=== PATIENT | female | born 1965 | race Caucasian/White ===

== ENCOUNTER 2022-03-09 14:13 | Outpatient (CLI) | payer BC, SELFPAY ==
--- NOTE | 2022-03-09 15:30 | CRLHL7_ITS ---
For Patients: As a result of the 21st Century Cures Act, medical imaging exams and procedure reports are released immediately into your electronic medical record. You may view this report before your referring provider. If you have questions, please contact your health care provider. INDICATION: Patient with history of breast cancer status post bilateral mastectomy and reconstruction 2017. Patient with prior radiation therapy and chemotherapy. Patient recently with right hip pain and a small lucency in the greater trochanteric region of the right hip. Exam is being performed for staging. TECHNIQUE: Patient received 13.0 millicuries of 18 FDG (18 fluorodeoxyglucose) intravenously. PET-CT imaging has been performed from the mid skull to mid thigh level [address] images have been obtained for attenuation correction and localization only. Blood glucose level: 86 mg/dL. FINDINGS: Within the chest no abnormal uptake is identified in the mediastinum or hilar regions. The lungs demonstrate no abnormal uptake. No suspicious infiltrates or masses are seen. Axillary regions demonstrate small bilateral lymph nodes. These have low to intermediate activity with a SUV max of 2.1 on the left. Surgical clips are identified bilaterally. Patient is status post bilateral mastectomy with breast reconstruction. No abnormal chest wall activity is noted. The neck demonstrates symmetric salivary and oropharyngeal activity, no significant abnormal uptake is identified. Skull base is unremarkable. Benign appearing cyst left lobe of the liver is identified which is photopenic. Other small photopenic low-dense lesion within the liver are identified. No abnormal uptake is identified in the region of the liver. The spleen, pancreas, bilateral adrenal glands demonstrate no significant abnormal uptake. Retrocrural region retroperitoneum demonstrate no abnormal uptake. Iliac yue chain and groin demonstrate no significant abnormal uptake. Physiologic bowel activity is identified. The skeletal system demonstrates no significant abnormal uptake. No significant abnormal uptake is identified in the region the proximal right femur. There is mild increased activity in the posterior facets of the lumbar spine which is felt to be degenerative. IMPRESSION: 1. No significant abnormal uptake is identified in the region the right hip. No suspicious hypermetabolic skeletal lesions are noted. 2. Stable postsurgical change from bilateral mastectomy and breast reconstruction. 3. There is a small lymph node identified in the region of the left axilla with low to intermediate activity, favored to be of benign/reactive etiology. No suspicious hypermetabolic soft tissue lesions are seen. 4. Benign appearing low dense lesions within the liver are identified. Dictated by Cecil Deluca MD @ 03/15/2022 8:24:32 AM (Electronically Signed)
== END 2022-03-09 14:14 | disposition home or self-care (01) ==
LOC: RAD 14:14
PROVIDERS: Visit Provider Internal Medicine Hematology & Oncology
DX: C50.412 Malignant neoplasm of upper-outer quadrant of left female breast (principal); M25.551 Pain in right hip; M89.9 Disorder of bone, unspecified
CPT/HCPCS: 78815; A9552

== ENCOUNTER 2022-08-24 00:55 | Emergency (ER) | payer BC, SELFPAY ==
[2022-08-24] VITALS (9 sets, daily range): BP systolic 110–125; BP diastolic 53–84; PULSE 84–89; RESP 18; TEMP 36.6–36.7; O2SAT 96–98; BMI 25.4
--- NOTE | 2022-08-24 01:36 | CRLHL7_ITS ---
For Patients: As a result of the Century Cures Act, medical imaging exams and procedure reports are released immediately into your electronic medical record. You may view this report before your referring provider. If you have questions, please contact your health care provider. INDICATION: Chest pain. TECHNIQUE: Chest 2 view. COMPARISON: None. FINDINGS: Cardiovascular and mediastinum: Heart size and vasculature are normal in caliber and appearance. Lungs and pleural spaces: No focal consolidation. No sign of pleural effusion. No pneumothorax. Bones and soft tissues: Bilateral axillary and chest wall surgical clips. IMPRESSION: No acute pulmonary process. Dictated by Jean Marie Peguero MD @ 08/24/2022 2:31:52 AM (Electronically Signed)
--- NOTE | 2022-08-24 01:43 | ED_ITS ---
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 Chest pain happened at rest, constant and achy in nature. Started in the central chest and radiated bilaterally. [place] similar to achy pain following her mastectomy a few years ago. Did not try any medication to help with her symptoms. She had woken up from sleep about 45 minutes earlier with heartburn symptoms but did not notice a correlation. No prior history of this similar type of nocturnal symptoms before. She is not having any accompanying dizziness, shortness of breath or palpitations. She did have a wave of nausea but no vomiting when she went to go to the bathroom when she was awakened by the chest pain. No syncope or lightheadedness. She has not been experiencing any exertional symptoms, no decreased functional capacity or exercise intolerance. She admits that she has had a stressful week as the spring internship, there has been a well publicized on campus incident. She has no personal history of cardiac disease. No personal history of gallbladder disease, no family history of gallbladder disease. Denies prior endoscopy. No alcohol intake. Dinner of Thai meatballs at local restaurant several hours prior to symptom onset. Last bowel movement yesterday, normal with no blood or diarrhea. Past medical history she states is really only notable for breast cancer. She has underwent mastectomy for this. Her only home medication is anastrozole. Allergies are to oxycodone switch sounds like it intolerance. Socially she is a nonsmoker, no pertinent travel. Family history negative for gallbladder disease as stated above. ROS notable for the chest and GI symptoms as above only, otherwise denies times 12 systems. Related Data Home Medications Medication Instructions Recorded Confirmed anastrozole 1 mg tablet 1 mg PO DAILY 08/24/22 08/24/22 Allergies Allergy/AdvReac Type Severity Reaction Status Date / Time oxycodone AdvReac Verified 08/24/22 01:04 PFS PFS Social History Smoking Status: Never smoker Do you use any of these nicotine containing products: None How often do you have a drink containing alcohol: never AUDIT-C Alcohol total score: 0 Non-prescribed substance use: denies use Exam Const: Vital Signs, click to edit/add: Vital Signs - 24 hr 08/24/22 01:04 08/24/22 02:00 08/24/22 01:20 Temperature 97.9 F 98.1 F Pulse Rate [Left P ulse Oximeter] 85 86 85 Respiratory Rate 18 18 18 Blood Pressure [Le ft Upper Arm] 125/84 110/59 L 122/73 Pulse Oximetry 98 97 96 Oxygen Delivery Me thod Room Air Room Air Room Air 08/24/22 01:40 Temperature Pulse Rate [Left P ulse Oximeter] 85 Respiratory Rate 18 Blood Pressure [Le ft Upper Arm] 119/69 Pulse Oximetry 96 Oxygen Delivery Me thod Room Air Documenting provider has reviewed patient's vital signs: yes Common normals: no apparent distress General appearance: cooperative, comfortable and well kempt HENMT: Common normals: normocephalic Head and scalp: normocephalic Mouth: oral and palatal mucosa normal Throat: posterior oropharynx normal Eye: Common normals: conjunctivae normal General eye: normal appearance of both eyes Conjunctiva: conjunctiva(e) normal Neck & C-Spine: Common normals: full ROM and no lymphadenopathy Resp: Common normals: normal respiratory effort, no use of accessory muscles and clear to auscultation bilaterally Effort & inspection: able to speak in complete sentences Auscultation: clear to auscultation bilaterally Cardio: Common normals: regular rate, regular rhythm, S1 normal heart sound, S2 normal heart sound and no murmurs Rate: regular rate Rhythm: regular rhythm Heart sounds: S1 normal and S2 normal GI: Common normals: Normal to inspection, nondistended, normoactive bowel sounds present, no hepatosplenomegaly and no masses Palpation: no hepatosplenomegaly Other: Mildly tender to epigastrium only, not to the right upper quadrant. Extremity: Common normals: normal to inspection, normal capillary refill and no pedal edema Neuro: Speech: speech normal Motor exam: no movement abnormalities noted Psych: Common normals: speech normal Appearance: well kempt Speech: normal speech Mood and affect: euthymic mood Insight: insight good Judgement: judgment good Skin: Common normals: no rashes or lesions noted General skin exam: no rashes or lesions noted Course Vital Signs Vital signs: Initial Vital Signs Temperature 97.9 F 08/24/22 01:04 Temperature Source Temporal Artery Scan 08/24/22 01:04 Pulse Rate 85 08/24/22 01:04 Pulse Rhythm Regular 08/24/22 01:04 Respiratory Rate 18 08/24/22 01:04 Blood Pressure 125/84 08/24/22 01:04 Blood Pressure Mean 97 08/24/22 01:04 Blood Pressure Position Sitting 08/24/22 01:04 Pulse Oximetry 98 08/24/22 01:04 Oxygen Delivery Method Room Air 08/24/22 01:04 Vital Signs Temperature 97.9 F 08/24/22 01:04 Pulse Rate 85 08/24/22 01:04 Respiratory Rate 18 08/24/22 01:04 Blood Pressure 125/84 08/24/22 01:04 Pulse Oximetry 98 08/24/22 01:04 Oxygen Delivery Method Room Air 08/24/22 01:04 Temperature 98.1 F 08/24/22 02:00 Pulse Rate 86 08/24/22 02:00 Respiratory Rate 18 08/24/22 02:00 Blood Pressure 110/59 L 08/24/22 02:00 Pulse Oximetry 97 08/24/22 02:00 Oxygen Delivery Method Room Air 08/24/22 02:00 Medical Decision Making MDM Narrative Medical decision making narrative: Suspect GI etiology, cannot exclude cardiac, respiratory, musculoskeletal or other similar concerns. Recommend chest x-ray, EKG, troponin. Basic labs to look for gallbladder dysfunction and inflammatory markers. Trial of famotidine and Maalox, reassess. Update: Patient had marked improvement of pain with famotidine and Maalox. All labs and chest x-ray are very reassuring. Counseled on alarm symptoms for chest pain. Would recommend either omeprazole or famotidine nightly for the next few days, okay to continue long-term if she finds it beneficial. If no improvement within a couple of weeks, should make a follow-up appointment with primary care provider to discuss endoscopy. She verbalizes understanding and agreement. All questions answered. Lab Data Lab results reviewed: Yes I reviewed the patient's lab results Labs: Lab Results 08/24/22 Range/Units 01:50 WBC 4.27 L (4.50-11.00) K/uL RBC 4.63 (4.00-5.20) m/uL Hgb 13.2 (12.0-16.0) gm/dL Hct 39.3 (33.0-51.0) % MCV 85 (80-100) fL MCH 29 (26-34) pg MCHC 34 (32-36) gm/dL RDW Coeff of Tyler 13.9 (11.5-15.5) % Plt Count 246 (140-440) K/uL Neut % (Auto) 54.1 (42.0-72.0) % Lymph % (Auto) 36.8 (20-44) % Sullivan % (Auto) 6.8 (0.0-11.0) % Eos % (Auto) 2.1 (0.0-7.0) % Baso % (Auto) 0.2 (0.0-3.0) % Neut # (Auto) 2.30 (1.7-7.0) K/uL Lymph # (Auto) 1.60 (0.90-2.90) K/uL Sullivan # (Auto) 0.30 (0.00-0.90) K/UL Eos # (Auto) 0.10 (0.00-0.50) K/uL Baso # (Auto) 0.00 (0.00-0.30) K/uL Sodium 140 (135-149) mmol/L Potassium 3.9 (3.6-5.1) mmol/L Chloride 107 (96-114) mmol/L Carbon Dioxide 28 (20-32) mmol/L BUN 14 (7-30) mg/dL Creatinine 0.9 (0.5-1.5) mg/dL Estimated Creat Clear 66.26 Estimated GFR 74 ml/min Glucose 100 (60-115) mg/dL Calcium 9.0 (8.4-10.6) mg/dL Total Bilirubin 0.2 (0.1-1.5) mg/dL Direct Bilirubin 0.1 (0.0-0.5) mg/dL AST 25 (12-35) U/L ALT 21 (4-35) U/L Alkaline Phosphatase 58 (40-150) U/L Troponin I < 0.01 L (0.01-0.04) ng/mL C-Reactive Protein < 0.5 L (0.5-1.0) mg/dL NT-Pro-B Natriuret Pep < 20 pg/mL Total Protein 6.8 (6.0-8.3) g/dL Albumin 4.2 (3.3-5.0) g/dL POC Troponin I 0.01 (0.01-0.04) ng/ml Imaging Data Chest x-ray: Attestation: I have reviewed the pertinent imaging results. My impression: Normal Radiologist's impression: IMPRESSION: No acute pulmonary process. ECG Data Attestation: I personally reviewed and interpreted this ECG as follows: Prior ECG tracings: not available for review Interpretation: Normal sinus rhythm, rate of 81. Normal axis with good R-wave progression. No significant ST or T-wave abnormalities. Discharge Plan Discharge Clinical Impression: Chest pain due to GERD Patient Disposition: Home, Self-Care Condition: Improved Instructions: GERD (Gastroesophageal Reflux Disease) (DC) Additional Instructions: There are no signs of any issues with your heart, lungs, gallbladder or other organs today. This is great news. I am thankful that you do feel better after the stomach acid medicine, it does help confirm for me that this is the etiology of your symptoms. As we discussed, you will make more stomach acid with age, on the anastrozole and unfortunately during times of increased stress. Would recommend for at least the next few days that you take an [id number] antacid medicine such as omeprazole or famotidine. You were given famotidine here in the emergency department. This would be safe for you to use long-term as well or even every other night to help control acid symptoms. It decreases your risk of inflammation and damage long-term which may be beneficial for you. If your symptoms are not improving on medication after a few weeks, make a follow-up appoint with your primary care doctor to discuss an endoscopy. Activity Level: No Restrictions Discharge Diet: Regular Prescriptions: No Action anastrozole 1 mg tablet 1 mg PO DAILY Follow Up/Referrals: Provider,Not a Local [Primary Care Provider] - Stand Alone Forms: Work [employer] Info Instructions
[2022-08-24] MEDS: FAMOTIDINE 20 MG TABLET PO (01:46)
[2022-08-24] MEDS: MAG HYDROX/ALUMINUM HYD/SIMETH 30 ML ORAL.SUSP 15 ML PO (01:47)
[2022-08-24 01:55] LABS: Basophils Percent Auto 0.2 % (0.0-3.0); Eosinophils Percent Auto 2.1 % (0.0-7.0); Hematocrit 39.3 % (33.0-51.0); Hemoglobin* 13.2 gm/dL (12.0-16.0); Lymphocytes Percent Auto 36.8 % (20-44); Mean Corpuscular HGB Conc 34 gm/dL (32-36); Mean Corpuscular Hemoglobin 29 pg (26-34); Mean Corpuscular Volume 85 fL (80-100); Monocytes Percent Auto 6.8 % (0.0-11.0); Neutrophils Percent Auto 54.1 % (42.0-72.0); Platelet Count* 246 K/uL (140-440); RDW Coefficient of Variation % 13.9 % (11.5-15.5); Red Blood Count 4.63 m/uL (4.00-5.20); White Blood Count* 4.27 K/uL (4.50-11.00)
[2022-08-24 02:03] LABS: Troponin, Point-of-Care* 0.01 ng/ml (0.01-0.04)
[2022-08-24 02:04] LABS: Slide Review Reflex No
[2022-08-24 02:09] LABS: Albumin* 4.2 g/dL (3.3-5.0); Chloride* 107 mmol/L (96-114); Sodium* 140 mmol/L (135-149)
[2022-08-24 02:10] LABS: Potassium* 3.9 mmol/L (3.6-5.1)
[2022-08-24 02:11] LABS: Creatinine* 0.9 mg/dL (0.5-1.5); Est. Creatinine Clearance* 66.26; Estimated Glomerular Filt Rate 74 ml/min
[2022-08-24 02:12] LABS: Alanine Aminotransferase* 21 U/L (4-35); Alkaline Phosphatase* 58 U/L (40-150); Aspartate Amino Transferase* 25 U/L (12-35); Bilirubin Direct* 0.1 mg/dL (0.0-0.5); Bilirubin Total* 0.2 mg/dL (0.1-1.5); Blood Urea Nitrogen* 14 mg/dL (7-30); Carbon Dioxide* 28 mmol/L (20-32); Total Protein* 6.8 g/dL (6.0-8.3)
[2022-08-24 02:13] LABS: Glucose* 100 mg/dL (60-115)
[2022-08-24 02:22] LABS: C Reactive Protein* < 0.5 mg/dL (0.5-1.0); NT Pro B Type NatriureticPept* < 20 pg/mL
[2022-08-24 02:27] LABS: Troponin I* < 0.01 ng/mL (0.01-0.04)
== END 2022-08-24 02:46 | disposition home or self-care (01) ==
PROVIDERS: Emergency Provider Family Medicine
DX: R07.9 Chest pain, unspecified (principal); K21.9 Gastro-esophageal reflux disease without esophagitis
CPT/HCPCS: 36415; 71046; 80048; 80076; 83880; 84484; 85025; 86140; 93005; 99283; 99284; A9270

== ENCOUNTER 2023-10-26 06:29 | Outpatient (CLI) | payer BC, SELFPAY ==
--- OUTSIDE RECORDS SUMMARY | 2023-10-26 06:32 | XMS_ITS | Encounter Summary ---
Author Organization [facility] Address [address] [place] [address]. [place] [address] Care Team Providers Care Automatic Typewriter Inspector Name Role Phone Cecil Lewis MD Primary Care Provider [phone] Cecil Lewis MD Unavailable [phone] Encounter Details Date Type Department Care Team ([facility] Contact Info) Description 2023 MyC Medical Advice [facility] [address] [address] Anitra Diallo RN Social History Tobacco Use Types Packs/Day Years Used Date Smoking Tobacco: Never Smokeless Tobacco: Never Alcohol Use Standard Drinks/Week Comments Yes 0 (1 standard drink = 0.6 oz pur e alcohol) 4 a week AUDIT-C Answer Date Recorded Q1: How often do you have a drink containing alc ohol? 2-3 times a week 01/17/2019 Average Number of Drinks Not on file 019 Frequency of Binge Drinking Not on file 10/2018 PHQ-2 Answer Date Recorded PHQ-2 Score 0 04/24/2022 Adolescent Education Answer Date Record ed Getting School Help Needed Not on file 02/26 Sex and Gender Information Value Date Recorded Sex Assigned at Female 12/07/2020 9:26 AM CDT Gender Identity Female 12/07/2020 9:26 AM CDT Sexual Orientation Straight 12/07/2020 9: 26 AM CDT documented as of this encounter Plan of Treatment Upcoming Encounters Date Type Department Care Team ([facility] Contact Info) Description 10/28/2024 9:00 AM CDT Office Visit [place] [phone], [address] [place] [phone] Cecil Lewis MD [address] [place] [id number] documented as of this encounter Visit Diagnoses Not on filedocumented in this encounter Care Teams Automatic Typewriter Inspector Relationship Specialty Start Date End Date Cecil Lewis MD [address] [place] [id number] PCP - General Internal Medicine 12/30/18 Cecil Lewis MD [address] [place] [id number] Assigned PCP 12/26/18 documented as of this encounter
--- OUTSIDE RECORDS SUMMARY | 2023-10-26 06:32 | XMS_ITS | Encounter Summary ---
Author Organization [facility] Address [address] [place] [address]. [place] [address] Care Team Providers Care Cadd Drafter Name Role Phone Cecil Lewis MD Primary Care Provider [phone] Cecil Lewis MD Unavailable Encounter Details Date Type Department Care Team ([facility] Contact Info) Description 09/04/2023 MyC Medical Advice [facility] [address] [address] Rosalinda Omer Social History Tobacco Use Types Packs/Day Years [...] Upcoming Encounters Date Type Department Care Team ([facility] Contact Info) Description 10/28/2024 9:00 AM CDT Office Visit [facility] [address] [facility], [address] [place] [phone] Cecil Lewis MD [address] [facility] [address] [place] [phone] documented as of this encounter Visit Diagnoses Not on filedocumented in this encounter Care Teams Cadd Drafter Relationship Specialty Start Date End Date Cecil Lewis MD [address] [facility] [address] [place] [id number] PCP - General Internal Medicine 12/30/18 Cecil Lewis MD [address] [facility] [address] [place] [phone] Assigned PCP 12/26/18 documented as of this encounter
--- OUTSIDE RECORDS SUMMARY | 2023-10-26 06:32 | XMS_ITS | Referral Summary ---
Author Organization [facility] Address [address] [place] [address]. [place] [address] Care Team Providers Care Second Hand Paper Machine Name Role Phone Cecil Lewis MD Primary Care Provider [phone] Cecil Lewis MD Unavailable [phone] Encounters Date Type Department Care Team Description 10/16/2023 9:00 AM CDT Office Visit [address], [address] [place] [phone] Cecil Lewis MD Pre-op examination (Primary Dx); Tubular adenoma of colon; Melanoma of skin (H); Malignant neoplasm of left breast in female, estrogen receptor positive, unspecified site of breast (H) 10/15/2023 Travel 09/04/[address] [facility] [address] [place] [address] Rosalinda Omer from Last 3 Months Allergies Active Allergy Reactions Criticality Noted Date Comments Adhesive Tape Rash Low 03/19/2018 No Clinical Screening - See Comments Other (See Comments) 03/06/2018 Feminine hygiene products; Sensodyne toothpaste Oxycodone Hives 02/23/2015 Patient reports tolerating Percocet Medications Medication Sig Dispensed Refills Start Date End Date Status anastrozole (ARIMIDEX) 1 MG tablet 2 12/23/2018 Active traZODone (DESYREL) 50 MG tablet 0 02/05/2018 Active vitamin D2 (ERGOCALCIFEROL) 95194 units (1250 mcg) capsule Take 2,500 Units by mouth once a week Active triamcinolone (ARISTOCORT HP) 0.5 % external creamIndications:E czema, unspecified type Apply topically 2 times daily 60 g 01/17/2019 Active meloxicam (MOBIC) 15 MG tablet TAKE 1 TABLET DAILY FOR 6 WEEKS 10/01/2023 Active hydrocortisone (CORTAID) 0.5 % external cream 10/16/2023 Discontinu ed ibuprofen (ADVIL/MOTRIN) 200 MG tablet Take 200 mg by mouth 10/16/2023 Discontinued Multiple Vitamin (MULTI-VITAMINS) TABS Take 1 tablet by mouth 10/16/2023 Discontinued Active Problems Problem Noted Date Diagnosed Date Skin cancer, basal cell 09/11/2020 Melanoma of skin 05/14/2019 Overview: left calf Tubular adenoma of colon 05/14/2018 Breast cancer 01/12/2018 Overview: bilateral mastectomy and reconstruction, then chemo and tamoxifen Resolved Problems Problem Noted Date Diagnosed Date Resolved Date Screening for osteoporosis 09/11/2018 1 06/25/2021 Overview: nl, done by oncology Immunizations Name Administration Dates Next Due COVID-19 Monovalent 18+ (Moderna) 07/04/2020, Influenza (H1N1) 03/31/2009 Influenza (IIV3) PF 02/15/2015, 4,02/17/2013,2011,02/14/2011,02/07/2010 Influenza Vaccine >6 months,quad, PF 08/2022,02/23/2022,02/23/2021,2018,02/20/2018 Influenza Vaccine, 6+MO IM (QUADRIVALENT W/PRESERVATIVES) 02/25/2020,02/19/2019 Influenza, Whole Virus 02/22/2017 Influenza, seasonal, injectable, PF 02/01/2009 TDAP (Adacel,Boostrix) 04/27/2023 TDAP Vaccine (Adacel) 10/09/2012 Zoster recombinant adjuvante d (SHINGRIX) 04/27/2019,12/28/2018,12/17/2018 Social History Tobacco Use Types Packs/Day Years [...] PHQ-2 Answer Date Recorded PHQ-2 Score 0 10/16/2023 Adolescent Education Answer Date Record ed Getting School Help Needed Not on file 02/26 Sex and Gender Information Value Date Recorded Sex Assigned at Female 12/07/2020 9:26 AM CDT Gender Identity Female 12/07/2020 9:26 AM CDT Sexual Orientation Straight 12/07/2020 9: 26 AM CDT Last Filed Vital Signs Vital Sign Reading Time Taken Comments Blood Pressure 119/78 10/16/2023 8:38 AM CDT Pulse 73 10/16/2023 8:38 AM CDT Temperature 36.4 ??C (97.5 ??F) 10/16/2023 8:38 AM CD T Respiratory Rate 16 10/16/2023 8:38 AM CDT Oxygen Saturation 98% 10/16/2023 8:38 AM CDT Inhaled Oxygen Concentration - - Weight 74.8 kg (165 lb) 10/16/2023 8:38 AM CDT Height 168.9 cm (5' 6.5) 10/16/2023 8:38 AM CDT Body Mass Index 26.23 10/16/2023 8:38 AM CDT Plan of Treatment Upcoming Encounters Date Type Department Care Team (Late st Contact Info) Description 10/28/2024 9:00 AM CDT Office Visit [address] [facility], [address] [place] [phone] Cecil Lewis MD [address] [place] [id number] Procedures Procedure Name Priority Date/Time Associated Diagnosis Comments GLUCOSE (EXTERNAL RESULT) Routine 03/07/2022 9:43 AM CDT LIPID PANEL (EXTERNAL RESULT) Routine 03/07/2022 9:43 AM CDT HIV ANTIGEN ANTIBODY COMBO Routine 12/07/2020 10:56 AM CDT Encounter for annual physical exam HEPATITIS C ANTIBODY Routine 12/07/2020 10:56 AM CDT Encounter for annual physical exam COLONOSCOPY - HIM SCAN 10/18/2018 12:00 AM CDT PAP SMEAR - HIM PATIENT REPORTED Routine 10/23/2016 ABSTRACT HPV (HIM EXTERNAL RESULT) Routine 10/23/2016 from Last 3 Months or Most Recently Relevant to Health Maintenance Results * (ABNORMAL) Lipid Panel (External Result) (03/07/2022 9:43 AM CDT) Cholesterol (External) 275(A) 100 - 199 mg/dL [facility] Triglycerides (External) 93 0 - 149 mg/dL [facility] [place] HDL Cholesterol (External) 110 >39 mg/dL [facility] [place] LDL Cholesterol (External) 150(A) 0 - 99 mg/dL [facility] Blood 03/07/2022 9:43 AM CDT Narrative [facility] [place] - 03/07/2022 9:43 AM CDT OGI Provider Outside LAB - [facility] EXTERNAL R ESULT Performing Organization Address City/State/[facility] Co de Phone Number [facility] [employer] [place] [address] [place] [address] * Glucose (External Result) (03/07/2022 9:43 AM CDT) Glucose (External) 89 70 - 99 mg/dL [facility] Blood 03/07/2022 9:43 AM CDT Narrative [facility] [place] - 03/07/2022 9:43 AM CDT OGI Provider Outside LAB - HIM EXTERNAL R ESULT [facility] Miguel [place] [address] [place] [address], [facility] * HIV Antigen Antibody Combo (12/07/2020 10:56 AM CDT) HIV Antigen Antibody Combo Nonreactive Nonreactive 12/08/2020 11:33 AM CDT [facility] Comment:HIV-1 p24 Ag & HIV-1 /HIV-2 Ab Not Detected Blood STRUCTURE OF RIGHT UPPER LIMB / Unknown Venipuncture / Unknown 12/07/2020 10:56 AM CDT 12/07/2020 10:56 AM CDT Cecil Lewis MD LAB - BLOOD ORDER [facility] Lab [address] [facility], [address] [address], [facility] [phone] * Hepatitis C antibody (12/07/2020 10:56 AM CDT) Pathologist [facility] Hepatitis C Antibody Nonreactive Nonreactive 12/08/2020 11:33 AM CDT [facility] Blood STRUCTURE OF RIGHT UPPER LIMB / Unknown Venipuncture / Unknown 12/07/2020 10:56 AM CDT 12/07/2020 10:56 AM CDT Narrative [facility] - 12/08/2020 11:33 AM CDT Assay performance characteristics have not been established for newborns, infants, and children. Cecil Lewis MD LAB - BLOOD ORDER [facility] Lab [address] [facility], [address] [place] [address], [facility] [phone] * COLONOSCOPY - HIM SCAN (10/18/2018 12:00 AM CDT) 10/18/2018 Provider Outside PROCEDURES * PAP Smear - HIM Patient Reported (10/23/2016) PAP Smear - HIM Patient Reported Negative EXTERNAL LAB 10/23/2016 Narrative EXTERNAL LAB - 10/23/2016 LAB RESULT OGI Provider Outside LABORATORY EXTERNAL LAB External Lab * ABSTRACT HPV-NO CHARGE (10/23/2016) HPV Abstract See Scanned Document EXTERNAL LAB 10/23/2016 Narrative EXTERNAL LAB - 10/23/2016 LAB RESULT OGI Provider Outside LAB - HIM EXTERNAL R ESULT EXTERNAL LAB External Lab from Last 3 Months or Most Recently Relevant to Health Maintenance Care Teams Second Hand Paper Machine Relationship Specialty Start Date End Date Cecil Lewis MD [address] [place] [id number] PCP - General Internal Medicine 12/30/18 Cecil Lewis MD [address] [place] [id number] Assigned PCP 12/26/18
--- OUTSIDE RECORDS SUMMARY | 2023-10-26 06:32 | XMS_ITS | Clinical Summary ---
Author Organization [facility] Address [address] [place] [address]. [place] [address] Care Team Providers Care Production Controller Name Role Phone Cecil Lewis MD Primary Care Provider [phone] Cecil Lewis MD Unavailable Allergies Active Allergy Reactions Criticality Noted Date [...] tablet 0 02/05/2018 Active vitamin D2 (ERGOCALCIFEROL) 29613 units (1250 mcg) capsule Take 2,500 Units [...] 1 06/25/2021 Overview: nl, done by oncology Encounters Date Type Department Care Team Description 10/16/2023 9:00 AM CDT Office Visit [address], [address] [place] [address] Cecil Lewis MD Pre-op examination (Primary Dx); Tubular adenoma of colon; Melanoma of skin (H); Malignant neoplasm of left breast in female, estrogen receptor positive, unspecified site of breast (H) 10/15/2023 Travel 09/04/2023 MyC Medical Advice [facility] [address] 4[address] [place] [address] Rosalinda Omer from Last 3 Months Immunizations Name Administration Dates Next Due COVID-19 Monovalent 18+ (Moderna) 07/04/2020, Influenza (H1N1) 03/31/2009 Influenza (IIV3) PF 02/15/2015, 4,02/17/2013,2011,02/14/2011,02/07/2010 Influenza Vaccine >6 months,quad, PF 08/2022,02/23/2022,02/23/2021,2018,02/20/2018 Influenza Vaccine, 6+MO IM (QUADRIVALENT W/PRESERVATIVES) 02/25/2020,02/19/2019 Influenza, Whole Virus 02/22/2017 Influenza, seasonal, injectable, PF 02/01/2009 TDAP (Adacel,Boostrix) 04/27/2023 TDAP Vaccine (Adacel) 10/09/2012 Zoster recombinant adjuvante d (SHINGRIX) 04/27/2019,12/28/2018,12/17/2018 Family History Medical History Relation Comments Ulcerative Colitis Brother 1 Depression Brother 2 Anesthesia Reaction Father agitation wi th anesthesia Dialysis Father Hypertension Father Kidney Disease Father older age Marte's esophagus Mother Lymphoma Mother Depression Sister Relation Status Comments Brother 1 Alive Brother 2 Alive Father Mother Alive Sister Social History Tobacco Use Types Packs/Day Years [...] Description 10/28/2024 9:00 AM CDT Office Visit [facility] [address] [facility], [address] [place] [phone] Cecil Lewis MD [address] [place] [address] Health Maintenance Due Date Last Done Comments ANNUAL REVIEW OF HM ORDERS 1965 CT COLONOGRAPHY 1965 FIT 1965 FLEX SIG 1965 sDNA (Cologuard) 1965 Pneumococcal Vaccine: Pediatrics (0 to 5 Years) and At-Risk Patients (6 to 64 Years) (1 of 2 - PCV) 1970 HEPATITIS B IMMUNIZATION (1 of 3 - 19+ 3-dose series) 07/20/1983 COVID-19 Vaccine (2022- season) 2023 02/14/2023, 01/19/2022, 03/26/2021, Additional history exists YEARLY PREVENTIVE VISIT 04/24/2023 04/24/20, 12/07/2020, 12/04/2019 COLONOSCOPY 10/19/2023 10/18/2018, 11/2018, 02/11/2018 COLORECTAL CANCER SCREENING 10/19/2023 GLUCOSE 03/07/2025 03/07/2022, 11/12, 11/28/2018, Additional history exists ADVANCE CARE PLANNING 12/07/2025 12/07/2020 LIPID 03/07/2027 03/07/2022, 11/12, 11/28/2018, Additional history exists DTAP/TDAP/TD IMMUNIZATION (3 - Td or Tdap) 04/27/2033 04/27/2023, 10/09/2012 ZOSTER IMMUNIZATION Completed 04/27/2019, 12/28/2018, 12/17/2018 HPV TEST Discontinued 12/04/2019, 10/23/2016 PAP Discontinued 12/04/2019, 10/12, 10/23/2016 HEPATITIS C SCREENING Completed 12/07/2020 HIV SCREENING Completed 12/07/2020 INFLUENZA VACCINE Completed 02/14/2023, , 02/23/2021, Additional history exists PHQ-2 (once per calendar year) Completed 10/16/2023, 04/24/2022, 12/07/2020, Additional history exists HPV IMMUNIZATION Aged Out No longer e ligible based on patient's age to complete this topic IPV IMMUNIZATION Aged Out No longer e ligible based on patient's age to complete this topic MENINGITIS IMMUNIZATION Aged Out No l onger eligible based on patient's age to complete this topic RSV MONOCLONAL ANTIBODY Aged Out No l onger eligible based on patient's age to complete this topic Procedures Procedure Name Priority Date/Time Associated Diagnosis Comments GLUCOSE (EXTERNAL RESULT) Routine 03/07/2022 9:43 AM CDT LIPID PANEL (EXTERNAL RESULT) Routine 03/07/2022 9:43 AM CDT HIV ANTIGEN ANTIBODY COMBO Routine 12/07/2020 10:56 AM CDT Encounter for annual physical exam HEPATITIS C ANTIBODY Routine 12/07/2020 10:56 AM CDT Encounter for annual physical exam COLONOSCOPY - [facility] SCAN 10/18/2018 12:00 AM CDT PAP SMEAR - [facility] PATIENT REPORTED Routine 10/23/2016 ABSTRACT HPV (HIM EXTERNAL RESULT) Routine 10/23/2016 from Last 3 Months or Most Recently Relevant to Health Maintenance Results * (ABNORMAL) Lipid Panel (External Result) (03/07/2022 9:43 AM CDT) [facility] Signature Cholesterol (External) 275(A) 100 - 199 mg/dL [facility] Triglycerides (External) 93 0 - 149 mg/dL [facility] HDL Cholesterol (External) 110 >39 mg/dL [facility] LDL Cholesterol (External) 150(A) 0 - 99 mg/dL [facility] Blood 03/07/2022 9:43 AM CDT N[facility]ative [facility] - 03/07/2022 9:43 AM CDT OGI Provider Outside LAB - HIM EXTERNAL R ESULT [facility] [address] [place] [address], [facility] * Glucose (External Result) (03/07/2022 9:43 AM CDT) Glucose (External) 89 70 - 99 mg/dL [facility] Blood 03/07/2022 9:43 AM CDT N[facility]ative [facility] - 03/07/2022 9:43 AM CDT OGI Provider Outside LAB - [facility] EXTERNAL R ESULT [facility] [address] [place] [address] * HIV Antigen Antibody Combo (12/07/2020 10:56 AM CDT) Pathologist [facility] HIV Antigen Antibody Combo Nonreactive Nonreactive 12/08/2020 11:33 AM CDT [facility] Comment:HIV-1 p24 Ag & HIV-1 /HIV-2 Ab Not Detected Blood STRUCTURE OF RIGHT UPPER LIMB / Unknown Venipuncture / Unknown 12/07/2020 10:56 AM CDT 12/07/2020 10:56 AM CDT Cecil Lewis MD LAB - BLOOD ORDER [facility] Specialty Core Lab [address] [place] [address], [address] [address] [phone] * Hepatitis C antibody (12/07/2020 10:56 AM CDT) Hepatitis C Antibody Nonreactive Nonreactive 12/08/2020 11:33 AM CDT [facility] Blood STRUCTURE OF RIGHT UPPER LIMB / Unknown Venipuncture / Unknown 12/07/2020 10:56 AM CDT 12/07/2020 10:56 AM CDT Narrative [facility] - 12/08/2020 11:33 AM CDT Assay performance characteristics have not been established for newborns, infants, and children. Cecil Lewis MD LAB - BLOOD ORDER [facility] SPECIALTY CORE [facility] Specialty Core Lab [address] [facility], [address] [place] [address], [facility] [phone] * COLONOSCOPY - HIM SCAN (10/18/2018 12:00 [...] Recently Relevant to Health Maintenance Care Teams Production Controller Relationship Specialty Start Date End Date Cecil Lewis MD [address] [facility] [address] [place] [id number] PCP - General Internal Medicine 12/30/18 Cecil Lewis MD [address] [place] [address] Assigned PCP 12/26/18
--- OUTSIDE RECORDS SUMMARY | 2023-10-26 06:32 | XMS_ITS | Clinical Summary ---
Author Organization [facility] [place], [place] [address] Care Team Providers Care Utilization Review Rn Name Role Phone Cecil Lewis MD Unavailable Cecil Hunter MD Unavailable [phone] Cecil Lewis MD Primary Care Provider [phone] Allergies Active Allergy Reactions Criticality Noted Date Comments Adhesive Tape-Silicones Rash 03/19/2018 Lanolin-Mineral Oil Rash 03/06/2018 Unlisted Allergen (Include Detail In Comments) Other - Describe In Comment Field 03/06/2018 Feminine hygiene products; Sensodyne toothpaste Oxycodone Hives 02/23/2015 Patient reports tolerating Percocet Medications Medication Sig Dispensed Refills Start Date End Date Status cholecalciferol, vitamin D3, (VITAMIN D3) 4,000 unit cap Take 1 capsule by mouth once daily. Active hydrocortisone 0.5 % cream Apply topically to affected area(s). Active estradiol (VAGIFEM) 10 mcg tab vaginal tablet Insert 10 mcg into the vagina every Sunday and Sunday. Active traZODone (DESYREL) 50 mg tabletIndications: take 1-2 at HS Take 50-100 mg by mouth at bedtime. Active multivitamin (MVI) tablet Take 1 tablet by mouth once daily. Active milk of magnesia (MOM) 400 mg/5 mL suspension Take 30 mL by mouth at bedtime. 1 Bottle 03/09/2018 Active triamcinolone 0.5% (ARISTOCORT) 0.5 % cream 0 03/13/2018 Active anastrozole (ARIMIDEX) 1 mg tablet Take 1 mg by mouth once daily. Active ergocalciferol, vitamin D2, (VITAMIN D2 ORAL) Take by mouth. Act yasmine ibuprofen (ADVIL; MOTRIN) 200 mg tablet Take 200 mg by mouth 4 times daily if needed. Active diphenhydrAMINE (BENADRYL) 25 mg tabletIndications: Malignant neoplasm of female breast, unspecified estrogen receptor status, unspecified laterality, unspecified site of breast (HC) Take 1-2 tablets by mouth every 4 hours if needed. 24 tablet 08/22/2018 Active fluconazole (DIFLUCAN) 50 mg tablet Take 1 tablet by mouth once daily. 14 tablet 04/05/2020 Active medication order composer Taking a vaginal antibacterial medication 0 04/05/2020 Active Active Problems Problem Noted Date Diagnosed Date Impingement syndrome of left shoulder 11/27/2019 Immunizations Name Administration Dates Next Due Influenza, IIV4 02/20/2018 Family History Medical History Relation Name Comments Kidney disease Father Lymphoma Mother Cancer-breast Other 1 cousin 2 cousins, 2nd one at age 51 Cancer-breast Other 2 cousin Cancer Paternal Aunt nodules around lung Cancer-colon No Family History Cancer-ovarian No Family History Relation Name Status Comments Father Mother Other 1 cousin Alive Other 2 cousin Alive Paternal Aunt Social History Tobacco Use Types Packs/Day Years Used Date Smoking Tobacco: Never Smokeless Tobacco: Never Alcohol Use Standard Drinks/Week Comments Yes 0 (1 standard drink = 0.6 oz pur e alcohol) one a day Social Connections Answer Date Recorded Frequency of Communication with Friends and Fami ly Not on file 04/12/2023 Financial Resource Strain Answer Date R ecorded Difficulty of Paying Living Expenses Not on file 05/14/2021 Difficulty of Paying Living Expenses Not on file 05/14/2021 Sex and Gender Information Value Date Recorded Sex Assigned at Not on file Gender Identity Not on file Sexual Orientation Not on file Obstetrics History Para Term AB IAB SAB Ectopic Multiple Livin g Live Births 3 2 Date Outcome GA Total Labor Labor/2nd/3rd Weight Sex Type Anes PTL Sonya A1 A5 Name Clin Para Para Last Filed Vital Signs Vital Sign Reading Time Taken Comments Blood Pressure 135/65 04/12/2023 9:27 AM [facility] Pulse 73 04/12/2023 9:27 AM [facility] Temperature 37.1 ??C (98.8 ??F) 04/12/2023 9:27 AM CS T Respiratory Rate 18 04/12/2023 9:27 AM [facility] Oxygen Saturation 94% 08/22/2018 10:45 AM CDT Inhaled Oxygen Concentration - - Weight 75.9 kg (167 lb 4.8 oz) 04/12/2023 9:27 A M [facility] Height 169.5 cm (5' 6.75) 04/12/2023 9:27 AM CS T Body Mass Index 26.4 04/12/2023 9:27 AM [facility] Plan of Treatment Health Maintenance Due Date Last Done Comments Tdap 07/20/1975 Depression screening for age 12+ 1976 HIV for age 15-65 07/20/1979 Hepatitis C screening for age 18-79 1982 Zoster (shingles) series for age 50+ (1 of 2) 07/20/1983 Tetanus booster 1984 Pap test for age 21-65 1985 Colonoscopy through age 75 2009 Lipids for age 45-75 2009 Mammogram for age 45-75 01/11/2019 01/12/20 18, 01/11/2018, 01/10/2017, Additional history exists COVID-19 vaccine series (2022-24 season) 2023 02/14/2023, 01/19/2022, 03/26/2021, Additional history exists Influenza for age 50-64 01/13/2024 02/20/2018 BMI (ht and wt on same day) for age 18+ 04/12/2024 04/12/2023, 04/12/2022, 04/11/2021, Additional history exists Pneumococcal series for age 6-64 Aged Out No longer eligible based on patient's age to complete this topic Medical Devices Implanted Type Area Process Controller Device Identifier Shelf Expiration Date Model / Serial / Lot [id number] carol Breast 450cc Natrellefull Txtrd Extra Prjctn Implanted:Qty: 1 on 03/07/2018 by Hoang Flores MD at [facility] Explanted:at [facility] (Quantity not on file) Right: Breast [employer] - [employer] 11/06/2021 133FX-12# / [id number] / [id number] carol Breast 450cc Natrellefull Txtrd Extra Prjctn Implanted:Qty: 1 on 03/07/2018 by Hoang Flores MD at [facility] Explanted:at [facility] (Quantity not on file) Left: Breast [employer] 10/25/2021 133FX-12# / [id number] / Mesh 8x16cm Alloderm Rtu Thickhuman - [id number] Implanted:Qty: 1 on 03/07/2018 by Hoang Flores MD at [facility] Explanted:at [facility] (Quantity not on file) Right: Breast [employer] 12/12/2019 [id number] / / [id number] Alloderm Select Tissue Matrix Rtu 8x16cm Implanted:Qty: 1 on 03/07/2018 by Hoang Flores MD at [facility] Explanted:at [facility] (Quantity not on file) Left: Breast [employer] Inc 11/10/2018 [id number] / / [id number] Description:ALLODERM SELECT TISSUE MATRIX RTU 8X16CM [id number] 3breast 300cc Memorygel Rnd Mod Plus Smooth Silcn Implanted:Qty: 1 on 08/22/2018 by Hoang Flores MD at [facility] Explanted:at [facility] (Quantity not on file) Right: Breast [employer] 09/05/2022 [id number] # / [id number] / [id number] 6breast 300cc Memorygel Rnd Mod Plus Smooth Silcn Implanted:Qty: 1 on 08/22/2018 by Hoang Flores MD at [facility] Explanted:at [facility] (Quantity not on file) Left: Breast [employer] 10/19/2021 [id number] # / [id number] / [id number] Procedures Procedure Name Priority Date/Time Associated Diagnosis Comments XR MAMMO BILAT SCREENING Routine 01/11/2018 8:12 AM CDT Visit for screening mammogram from Last 3 Months or Most Recently Relevant to Health Maintenance Results * XR MAMMO BILAT SCREENING (01/11/2018 8:12 AM CDT) Anatomical Region Laterality Modality BREASTS, Breast Left, Breast Right Bilateral Mammography 01/11/2018 9:07 AM CDT Impressions 01/11/2018 1:52 PM CDT LEFT breast focal asymmetry with calcifications. RECOMMENDATIONS: Additional mammographic views of the LEFT breast including CC and MLO tomosynthesis views, as well as CC and ML magnification views. LEFT breast ultrasound may also be required. This was immediately performed and is reported separately. BI-RADS Category 0: Incomplete: Need Additional Imaging Evaluation. Dictated by: Ade Kraus MD @01/11/2018 9:07:09 AM Narrative 01/11/2018 1:52 PM CDT BILATERAL DIGITAL SCREENING MAMMOGRAM WITH COMPUTER-AIDED DETECTION, 01/11/2018 ?? CLINICAL HISTORY: Routine screening exam. History of LEFT breast DCIS. COMPARISON: Mammogram 08/10/2016, 01/04/2016, 02/11/2015, 01/01/2015. TECHNIQUE: Digital mammogram in CC and MLO projections including computer-aided detection (CAD). BREAST COMPOSITION: Heterogeneously dense, which may obscure small masses. FINDINGS: RIGHT Breast: No suspicious findings. LEFT Breast: There is a focal asymmetry in the upper LEFT breast 12 o'clock posterior depth with associated calcifications. Kit Hamm MD MAMMO from Last 3 Months or Most Recently Relevant to Health Maintenance Advance Directives * Full Code (Latest Code Status on File) Date Activated Date Inactivated Comments 08/22/2018 6:12 AM 08/23/2018 2:29 AM Question Answer Comments Code Status Discussion: Not Discussed * Full Code Date Activated Date Inactivated Comments 03/07/2018 11:42 AM 03/09/2018 1:17 PM Question Answer Comments Code Status Discussion: Not Discussed * Full Code Date Activated Date Inactivated Comments 02/11/2015 6:26 AM 02/11/2015 7:07 PM Care Teams Utilization Review Rn Relationship Specialty Start Date End Date Cecil Lewis MD [address] [place] [phone] PCP - General Internal Medicine 04/06/21 Cecil Lewis MD Internal Medicine 12/28/14 Cecil Hunter MD Hematology and Oncology 01/17/18
--- OUTSIDE RECORDS SUMMARY | 2023-10-26 06:32 | XMS_ITS | Encounter Summary ---
Author Organization [facility] Address [address] [place] [address]. [place] [address] Care Team Providers Care Diesel Technician Mechanic Name Role Phone Cecil Lewis MD Primary Care Provider [phone] Cecil Lewis MD Unavailable [phone] Reason for Visit * Reason Comments Pre-Op Exam Encounter Details Date Type Department Care Team (Late st Contact Info) Description 10/16/2023 9:00 AM CDT Office Visit [address], [address] [place] [phone] Cecil Lewis MD [address] [facility] [address] [place], [place] [id number] Pre-op examination (Primary Dx); Tubular adenoma of colon; Melanoma of skin (H); Malignant neoplasm of left breast in female, estrogen receptor positive, unspecified site of breast (H) Social History Tobacco Use Types Packs/Day Years [...] AM CDT documented as of this encounter Last Filed Vital Signs Vital Sign Reading [...] Mass Index 26.23 10/16/2023 8:38 AM CDT documented in this encounter Progress Notes * Cecil Lewis MD - 10/16/2023 9:00 AM CDT Preoperative Evaluation [address], [address] [facility] [id number] Primary Provider: Cecil Lewis MD Pre-op Performing Provider: Cecil Lewis MD Oct 16, 2023 10/15/2023 Surgical Information What procedure is being done? Colonoscopy Facility or Hospital where procedure/surgery will be performed: [facility] Who is doing the procedure / surgery? Dr Cal Mark Date of surgery / procedure: 10/26/2023 Time of surgery / procedure: Morning Where do you plan to recover after surgery? at home alone Fax number for surgical facility: Julianna Ng is a 58 year old, presenting for the following: No chief complaint on file. HPI related to upcoming procedure: This is a very pleasant healthy 58-year-old who I am seeing for preoperative evaluation prior to a colonoscopy. She feels very well. She can do 4 METS without difficulty and has no recent illness or complaints. She is up-to-date with her type disk quality control supervisor and oncologist and there is no evidence of disease and after finishing this round of Arimidex she will be stopping it. The patient does note that with anesthesia in the past she can get agitated and that runs in the family. No other anesthesia issues. Past Medical History: Past Medical History: Diagnosis Date Breast cancer (H) 01/2018 bilateral mastectomy and reconstruction, then chemo and anastrazole, sees Dr. Blackman DCIS (ductal carcinoma in situ) 2014 lumpectomy and xrt, then tamoxifen History of colonoscopy 2018 one 2mm polyp Melanoma of skin (H) 2019 left calf Screening for osteoporosis 09/2018 nl, done by oncology, fu 08/01 and decreased bone density, start iv reclast via onc Skin cancer, basal cell 09/2020 Tubular adenoma of colon 2018 Past Surgical History: Past Surgical History: Procedure Laterality Date LUMPECTOMY BREAST 2015 MASTECTOMY, BILATERAL 02/2018 TONSILLECTOMY 1969 ZZC TOTAL ABDOM HYSTERECTOMY 2005 done vaginally for prolapsed uterus, still has ovaries Social History: Social History Tobacco Use Smoking status: Never Smokeless tobacco: Never Substance Use Topics Alcohol use: Yes Comment: 4 a week Family History: No family history of bleeding difficulty, anesthesia problems or blood clots except that some agitation postanesthesia does run in the family Allergies: Allergies Allergen Reactions No Clinical Screening - See Comments Other (See Comments) Feminine hygiene products; Sensodyne toothpaste Oxycodone Hives Patient reports tolerating Percocet Adhesive Tape Rash Medications: Current Outpatient Medications Medication Sig Dispense Refill anastrozole (ARIMIDEX) 1 MG tablet 2 meloxicam (MOBIC) 15 MG tablet TAKE 1 TABLET DAILY FOR 6 WEEKS traZODone (DESYREL) 50 MG tablet 0 triamcinolone (ARISTOCORT HP) 0.5 % external cream Apply topically 2 times daily 60 g 0 vitamin D2 (ERGOCALCIFEROL) 39943 units (1250 mcg) capsule Take 2,500 Units by mouth once a week Review of Systems: No history of bleeding difficulty, anesthesia problems or blood clots except as noted above in terms of agitation postanesthesia. The 10 point Review of Systems is negative other than noted in the HPI Physical Exam: Blood pressure 119/78, pulse 73, temperature 97.5 ??F (36.4 ??C), temperature source Temporal, resp. rate 16, height 1.689 m (5' 6.5), weight 74.8 kg (165 lb), SpO2 98%, not currently . Constitutional: healthy appearing, alert and in no distress Heent: Normocephalic. Head without obvious masses or lesions. PERRLDC, EOMI. Mouth exam within normal limits: tongue, mucous membranes, posterior pharynx all normal, no lesions or abnormalities seen.Neck supple, no nuchal rigidity or masses. No supraclavicular, or cervical adenopathy. Thyroid symmetric, no masses. Cardiovascular: Regular rate and rhythm, no murmer, rub or gallops. JVP not elevated, no edema. Carotids within normal limits bilaterally, no bruits. Respiratory: Normal respiratory effort. Lungs clear, normal flow, no wheezing or crackles. Gastrointestinal: Normal active bowel sounds. Soft, not tender, no masses, guarding or rebound. No hepatosplenomegaly. Musculoskeletal: extremities normal, no gross deformities noted. Skin: no suspicious lesions or rashes Neurologic: Mental status within normal limits. Speech fluent. No gross motor abnormalities and gait intact. Psychiatric: mentation appears normal and affect normal. Data: none Assessment: Normal preoperative examination, the patient should be a very low risk for the procedure Breast cancer, no evidence of disease, follow-up oncology Melanoma, no evidence of disease, follow-up dermatology Colon polyp Healthcare maintenance Agitation postanesthesia as noted above, please be aware of this Plan: The patient is okay for the anticipated procedure Follow-up specialist Up-to-date on labs and immunizations Cecil Lewis M.D. documented in this encounter Plan of Treatment Upcoming Encounters Date Type Department Care Team (Late st Contact Info) Description 10/28/2024 9:00 AM CDT Office Visit [place] [id number] [facility] [address] [facility], [address] [place] [phone] Cecil Lewis MD [address] [facility] [address] [place] [id number] documented as of this encounter Visit Diagnoses Diagnosis Pre-op examination- Primary Preoperative examination, unspecified Tubular adenoma of colon Benign neoplasm of colon Melanoma of skin (H) Melanoma of skin, site unspecified Malignant neoplasm of left breast in female, estrogen receptor positive, unspecified site of breast (H) documented in this encounter Care Teams Diesel Technician Mechanic Relationship Specialty Start Date End Date Cecil Lewis MD [address] [place] [id number] PCP - General Internal Medicine 12/30/18 Cecil Lewis MD [address] [place] [id number] Assigned PCP 12/26/18 documented as of this encounter
--- OUTSIDE RECORDS SUMMARY | 2023-10-26 06:32 | XMS_ITS | Encounter Summary ---
Author Organization [facility] Address [address] [place] [address]. [place] [address] Care Team Providers Care Ophthalmic Pathologist Name Role Phone Cecil Lewis MD Primary Care Provider [phone] Cecil Lewis MD Unavailable [phone] Encounter Details Date Type Department Care Team (Latest Contact Info) Description 10/15/2023 Travel Social History Tobacco Use Types Packs/Day Years [...] Description 10/28/2024 9:00 AM CDT Office Visit [facility] [address] [place] [address] [address] [facility], [address] [place] [phone] Cecil Lewis MD [address] [facility] [address] [place] [id number] documented as of this encounter Visit Diagnoses Not on filedocumented in this encounter Care Teams Ophthalmic Pathologist Relationship Specialty Start Date End Date Cecil Lewis MD [address] [place] [id number] PCP - General Internal Medicine 12/30/18 Cecil Lewis MD [address] [place] [id number] Assigned PCP 12/26/18 documented as of this encounter
--- NOTE | 2023-10-26 07:50 | W.ANESCHARGE ---
Anesthesia Charges Start Date/Time Anesthesia Start Date: 10/26/23 Anesthesia Start Time: 07:19 Stop Date/Time Anesthesia Stop Date: 10/26/23 Anesthesia Stop Time: 07:47
--- NOTE | 2023-10-26 09:09 | W.ANESCHARGE ---
Anesthesia Charges Start Date/Time Anesthesia Start Date: 10/26/23 Anesthesia Start Time: 07:19 Stop Date/Time Anesthesia Stop Date: 10/26/23 Anesthesia Stop Time: 07:47
== END 2023-10-26 06:30 | disposition home or self-care (01) ==
LOC: OP CLINIC 06:30
PROVIDERS: Visit Provider Internal Medicine
DX: Z12.11 Encounter for screening for malignant neoplasm of colon (principal); K63.5 Polyp of colon; K57.30 Diverticulosis of large intestine without perforation or abscess without bleeding
CPT/HCPCS: 00811; 45380; 45381; 45385; 88305; J2704